=== PATIENT | male | born 1985 | race American Indian/Alaskan Native ===

== ENCOUNTER 2020-09-17 10:02 | Emergency (ER) | payer BC ==
--- NOTE | 2020-09-17 11:18 | Emergency Department Report ---
ED Back Pain/Injury HPI - General Chief Complaint: Back Pain/Injury Stated Complaint: BACK PAIN Time Seen by Provider: 09/17/20 11:13 Source: patient Limitations: No Limitations - History of Present Illness Initial Comments: Patient is a 34-year-old male presents emergency room complaints of lower back pain that began yesterday. 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 He states yesterday he went to put down a smaller package and felt a pull in his back. He denies any fall. He is ambulatory. He states his pain is worse with movement such as bending over or rolling over in the bed. He states that his back feels tight. He denies any fever, nausea, vomiting, diarrhea, abdominal pain, numbness, weakness, bowel or bladder incontinence, u rinary symptoms. Past medical history of hypertension. No allergies to medications. - Related Data Previous Rx's Medication Instructions Recorded Last Taken Type Menthol/Camphor [Keo [place] 1 applicatio TP BID #18 oint...g. 09/17/20 Unknown Rx Ointment] Naproxen [EC-Naprosyn] 500 mg PO BID PRN #14 tablet. 09/17/20 Unknown Rx methOCARBAMOL [Robaxin TAB] 500 mg PO BID PRN #14 tab 09/17/20 Unknown Rx Allergies Allergy/AdvReac Type Severity Reaction Status Date / Time No Known Allergies Allergy Verified 09/17/20 11:14 ED Review of Systems ROS: Stated complaint: BACK PAIN Other details as noted in HPI Comment: All other systems reviewed and negative ED Past Medical Hx - Social History Smoking Status: Current Every Day Smoker Substance Use Type: None - Medications Home Medications: Home Medications Medication Instructions Recorded Confirmed Last Taken Type Menthol/Camphor [[place]o [place] 1 applicatio TP BID #18 oint...g. 09/17/20 Unknown Rx Ointment] Naproxen [EC-Naprosyn] 500 mg PO BID PRN #14 tablet. 09/17/20 Unknown Rx methOCARBAMOL [Robaxin TAB] 500 mg PO BID PRN #14 tab 09/17/20 Unknown Rx ED Physical Exam - General Limitations: No Limitations General appearance: alert, in no apparent distress - Head Head exam: Present: atraumatic, normocephalic - Eye Eye exam: Present: normal appearance - ENT ENT exam: Present: mucous membranes moist - Neck Neck exam: Present: normal inspection, full ROM. Absent: tenderness - Respiratory Respiratory exam: Present: normal lung sounds bilaterally. Absent: respiratory distress, wheezes, rales, rhonchi, stridor, chest wall tenderness, accessory muscle use, decreased breath sounds, prolonged expiratory - Cardiovascular Cardiovascular Exam: Present: regular rate, normal rhythm, normal heart sounds. Absent: systolic murmur, diastolic murmur, rubs, gallop - Back Exam Back exam: Present: normal inspection, full ROM, paraspinal tenderness (bilateral lumbar paraspinal muscular ttp, no midline C-spine, T-spine or L- spine ttp, no step offs, no deformities). Absent: vertebral tenderness - Neurological Exam Neurological exam: Present: alert, oriented X3, CN II-XII intact, normal gait. Absent: motor sensory deficit - Psychiatric Psychiatric exam: Present: normal affect, normal mood - Skin Skin exam: Present: warm, dry, intact ED Course Vital Signs 09/17/20 11:22 Temperature 98.6 F Pulse Rate 67 Respiratory 18 Rate Blood Pressure 157/97 [Left] O2 Sat by Pulse 100 Oximetry ED Medical Decision Making - Radiology Data Radiology results: report reviewed - Medical Decision Making Patient is a 34-year-old male presents emergency room complaints of lower back pain that began yesterday. 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 He states yesterday he went to put down a smaller package and felt a pull in his back. He denies any fall. He is ambulatory. He states his pain is worse with movement such as bending over or rolling over in the bed. He states that his back feels tight. He denies any fever, nausea, vomiting, diarrhea, abdominal pain, numbness, weakness, bowel or bladder incontinence, urinary symptoms. Past medical history of hypertension. No allergies to medications. Vitals are stable. On exam: bilateral lumbar paraspinal muscular ttp, no midline C-spine, T-spine or L-spine ttp, no step offs, no deformities, no focal neuro deficits. Symptoms appear most consistent with muscle strain. He has no red flag warning signs of back pain, no significant trauma, no unexplained weight loss, no neuro deficits, age is not greater than 50, no fever, no IV drug use, no steroid use, no history of cancer, no saddle numbness. Patient given prescription for Robaxin, naproxen, Keo balm ointment. Advised patient Please use medication as prescribed. Do not drive or operate machinery while taking muscle relaxer Robaxin. May use ice pack, heating pad, rest, Epsom salt bath. Follow-up with a primary care doctor. Return to emergency room for any new or worsening symptoms. Critical care attestation.: If time is entered above; I have spent that time in minutes in the direct care of this critically ill patient, excluding procedure time. ED Disposition Clinical Impression: Low back strain Qualifiers: Encounter type: initial encounter Qualified Code(s): S39.012A - Strain of muscle, fascia and tendon of lower back, initial encounter Disposition: TO HOME OR SELFCARE Is pt being admited?: No Does the pt Need Aspirin: No Condition: Stable Instructions: Lumbar Strain Additional Instructions: Please use medication as prescribed. Do not drive or operate machinery while taking muscle relaxer Robaxin. May use ice pack, heating pad, rest, Epsom salt bath. Follow-up with a primary care doctor. Return to emergency room for any new or worsening symptoms. Prescriptions: Naproxen [EC-Naprosyn] 500 mg PO BID PRN #14 tablet.dr PRN Reason: pain methOCARBAMOL [Robaxin TAB] 500 mg PO BID PRN #14 tab PRN Reason: pain Menthol/Camphor [Keo [place] Ointment] 1 applicatio TP BID #18 oint...g. Referrals: YAW ENCISO MD [Staff Physician] - 2-3 Days [facility] [Provider Group] - 2-3 Days Forms: Work/School Release Form(ED) Time of Disposition: 11:16 Print Language: MAURITANIAN
[2020-09-17 11:23] VITALS: BP 157/97
== END 2020-09-17 12:29 | disposition home or self-care (01) ==
LOC: ED 10:02
DX: S39.012A Strain of muscle, fascia and tendon of lower back, initial encounter (principal); F17.200 Nicotine dependence, unspecified, uncomplicated; Z79.899 Other long term (current) drug therapy; X58.XXXA Exposure to other specified factors, initial encounter; Y93.89 Activity, other specified; Y92.89 Other specified places as the place of occurrence of the external cause; Y99.8 Other external cause status
CPT/HCPCS: 99282

== ENCOUNTER 2020-09-19 12:37 | Emergency (ER) | payer BC ==
[2020-09-19 13:50] VITALS: BP 156/93
[2020-09-19] MEDS ORDERED: KETOROLAC 60 MG/2 ML INJ IM ONE (13:52)
--- NOTE | 2020-09-19 14:16 | XRay Report ---
LUMBAR SPINE 3 VIEWS INDICATION: Low back pain after heavy lifting. COMPARISON: No relevant prior imaging study available. FINDINGS: VERTEBRAE: No acute fracture. There is mild dextroscoliosis. DISC SPACES: Generalized mild discogenic degenerative changes are noted. FACET JOINTS: No significant abnormality. SOFT TISSUES: No significant abnormality. ADDITIONAL FINDINGS: No additional significant findings. IMPRESSION: 1. No acute findings. 2. Mild lumbar spondylosis. Signer Name: Chris Cronin MD Signed: 09/19/2020 2:12 PM Workstation Name: [email or web address]
--- NOTE | 2020-09-19 14:19 | Emergency Department Report ---
ED General Adult HPI - General Chief complaint: Back Pain/Injury Stated complaint: BACK PAIN Time Seen by Provider: 09/19/20 13:52 Source: patient Mode of arrival: Ambulatory Limitations: No Limitations - History of Present Illness Initial comments: 35-year-old -[place] male patient presents with complaints of continued low back pain since his visit 09/09/2020. Back pain began after lifting an item at work and feeling a pop in his low back. Patient was treated with naproxen and Robaxin 500 mg twice daily and states his symptoms have not improved. He also states he has been using heat and ice. He rates his current pain as a 8/10 in severity and states it worsens with movement and after sitting still for an extended period of time. He denies any numbness/tingling/weakness in his limbs, saddle paresthesia, loss of bladder/bowel control, hematochezia, hematuria, or abdominal pain. -: Sudden Severity scale (0 -10): 7 - Related Data Previous Rx's Medication Instructions Recorded Last Taken Type Menthol/Camphor [[place] 1 applicatio TP BID #18 oint...g. 09/17/20 Unknown Rx Ointment] methOCARBAMOL [Robaxin TAB] 500 mg PO BID PRN #14 tab 09/17/20 Unknown Rx Diclofenac Sodium 75 mg PO BID PRN #14 tablet. 09/19/20 Unknown Rx methOCARBAMOL [Robaxin TAB] 1,500 mg PO Q8H PRN #15 tablet 09/19/20 Unknown Rx Allergies Allergy/AdvReac Type Severity Reaction Status Date / Time No Known Allergies Allergy Verified 09/17/20 11:14 ED Review of Systems ROS: Stated complaint: BACK PAIN Other details as noted in HPI Constitutional: denies: malaise Gastrointestinal: denies: abdominal pain, diarrhea, constipation, hematemesis, melena, hematochezia Genitourinary: denies: urgency, dysuria, frequency, hematuria Musculoskeletal: back pain Skin: denies: change in color Neurological: denies: numbness, paresthesias, abnormal gait ED Past Medical Hx - Past Medical History Previous Medical History?: Yes Hx Hypertension: Yes - Surgical History Past Surgical History?: No - Social History Smoking Status: Current Every Day Smoker Substance Use Type: None - Medications Home Medications: Home Medications Medication Instructions Recorded Confirmed Last Taken Type Menthol/Camphor [[place] 1 applicatio TP BID #18 oint...g. 09/17/20 Unknown Rx Ointment] methOCARBAMOL [Robaxin TAB] 500 mg PO BID PRN #14 tab 09/17/20 Unknown Rx Diclofenac Sodium 75 mg PO BID PRN #14 tablet. 09/19/20 Unknown Rx methOCARBAMOL [Robaxin TAB] 1,500 mg PO Q8H PRN #15 tablet 09/19/20 Unknown Rx ED Physical Exam - General Limitations: No Limitations General appearance: alert, in no apparent distress - Head Head exam: Present: atraumatic, normocephalic - Eye Eye exam: Present: normal appearance. Absent: scleral icterus - Neck Neck exam: Present: normal inspection - Respiratory Respiratory exam: Present: normal lung sounds bilaterally. Absent: respiratory distress - Cardiovascular Cardiovascular Exam: Present: regular rate, normal rhythm - GI/Abdominal GI/Abdominal exam: Present: soft. Absent: tenderness - Back Exam Back exam: Present: full ROM, paraspinal tenderness (Low lumbar), vertebral tenderness (Lumbar; no obvious deformity) - Expanded Back Exam Expanded Back exam: Absent: saddle anesthesia - Neurological Exam Neurological exam: Present: alert, oriented X3, normal gait. Absent: motor sensory deficit - Expanded Neurological Exam Expanded Sensory exam: Lower Extremity Light Touch: Normal Motor strength exam: RLE: 5, LLE: 5 - Psychiatric Psychiatric exam: Present: normal affect, normal mood - Skin Skin exam: Present: warm, dry, intact, normal color. Absent: rash ED Course Vital Signs 09/19/20 13:49 Temperature 98.7 F Pulse Rate 74 Respiratory 17 Rate Blood Pressure 156/93 [Right] O2 Sat by Pulse 100 Oximetry ED Medical Decision Making - Radiology Data Radiology results: report reviewed LUMBAR SPINE 3 VIEWS INDICATION: Low back pain after heavy lifting. COMPARISON: No relevant prior imaging study available. FINDINGS: VERTEBRAE: No acute fracture. There is mild dextroscoliosis. DISC SPACES: Generalized mild discogenic degenerative changes are noted. FACET JOINTS: No significant abnormality. SOFT TISSUES: No significant abnormality. ADDITIONAL FINDINGS: No additional significant findings. IMPRESSION: 1. No acute findings. 2. Mild lumbar spondylosis. - Medical Decision Making 35-year-old -[place] male patient presents with complaints of continued low back pain since his visit 09/09/2020. Back pain began after lifting an item at work and feeling a pop in his low back. Patient was treated with naproxen and Robaxin 500 mg twice daily and states his symptoms have not improved. He also states he has been using heat and ice. He rates his current pain as a 8/10 in severity and states it worsens with movement and after sitting still for an extended period of time. He denies any numbness/tingling/weakness in his limbs, saddle paresthesia, loss of bladder/bowel control, hematochezia, hematuria, or abdominal pain. X-ray is negative for any acute bony abnormalities, but show spondylolysis. He denies any red flag symptoms. We will continue to treat for back spasm/strain. Will change naproxen to diclofenac and increase Robaxin to 1500 mg 3 times daily as needed. Recommend follow-up with orthopedics. His vitals are normal, he is well-appearing, he is stable for discharge home. Strict return precautions were discussed in detail with patient who verbalized understanding. Critical care attestation.: If time is entered above; I have spent that time in minutes in the direct care of this critically ill patient, excluding procedure time. ED Disposition Clinical Impression: Arthritis of back Back injury Qualifiers: Encounter type: subsequent encounter Qualified Code(s): S39.92XD - Unspecified injury of lower back, subsequent encounter Disposition: -01 TO HOME OR SELFCARE Is pt being admited?: No Condition: Stable Instructions: Lumbosacral Strain, Spondylolysis Prescriptions: Diclofenac Sodium 75 mg PO BID PRN #14 tablet. PRN Reason: pain methOCARBAMOL [Robaxin TAB] 1,500 mg PO Q8H PRN #15 tablet PRN Reason: muscle spasm/tightness Referrals: [facility] [Provider Group] - 3-5 Days Forms: Work/School Release Form(ED)
== END 2020-09-19 15:30 | disposition home or self-care (01) ==
LOC: ED 12:37
DX: S39.92XA Unspecified injury of lower back, initial encounter (principal); M47.816 Spondylosis without myelopathy or radiculopathy, lumbar region; I10 Essential (primary) hypertension; F17.200 Nicotine dependence, unspecified, uncomplicated; Z79.899 Other long term (current) drug therapy; X50.9XXA Other and unspecified overexertion or strenuous movements or postures, initial encounter; Y93.89 Activity, other specified; Y92.89 Other specified places as the place of occurrence of the external cause; Y99.8 Other external cause status
CPT/HCPCS: 72100; 96372; 99283; J1885

== ENCOUNTER 2021-06-28 02:47 | Emergency (ER) | payer BC ==
[2021-06-28] MEDS ORDERED: HYDROmorphone 1 MG/1 ML INJ IV ONE ×2 (03:07→04:18)
[2021-06-28] MEDS ORDERED: KETOROLAC 30 MG/1 ML INJ IV ONE (03:07)
[2021-06-28] MEDS ORDERED: ONDANSETRON 4 MG/2 ML INJ IV ONE (03:07)
[2021-06-28] MEDS ORDERED: ACETAMINOPHEN 500 MG TAB PO ONE (03:07)
--- NOTE | 2021-06-28 03:12 | Emergency Department Report ---
ED Back Pain/Injury HPI - General Chief Complaint: Back Pain/Injury Stated Complaint: BACK PAIN, CHRONIC Time Seen by Provider: 06/28/21 02:53 Source: patient, EMS Limitations: No Limitations - History of Present Illness Initial Comments: Complaint: Back pain HPI: This is 35-year-old male with history of hypertension, dyslipidemia, lumbar degenerative disc disease who presents with severe 10 out of 10 left lower back pain. Patient has been out of work on receiving Workmen's Compensation since August of last year. He is employed by [employer]. He is also followed by [employer] or [employer]. 1 day ago he remembers tweaking his back. He had his leg propped on a dresser while attempting to apply lotion. He feels that may have exacerbated his back pain. He takes gabapentin for back pain. He arrived via EMS. He has severe 10 out of 10 sore back pain with spasms and tightening. He denies leg weakness. He denies bowel or bladder incontinence. He was diagnosed with 2 ruptured discs and abnormal facet joint. He has received 1 epidural injection in the past. He is undergoing physical therapy at this time. Current medications: Atorvastatin, water pill Complaint: back pain -: Gradual, days(s) (1 day ago back pain exacerbated) Similar Symptoms Previously: Yes Place: home Severity: severe Severity scale (0 -10): 10 Quality: other ("Sore") Consistency: constant Improves With: none Worsens With: movement Context: turning/twisting, bending Associated Symptoms: denies other symptoms - Related Data Previous Rx's Medication Instructions Recorded Last Taken Type Menthol/Camphor [[place] 1 applicatio TP BID #18 oint...g. 09/17/20 Unknown Rx Ointment] methOCARBAMOL [Robaxin TAB] 500 mg PO BID PRN #14 tab 09/17/20 Unknown Rx Diclofenac Sodium 75 mg PO BID PRN #14 tablet. 09/19/20 Unknown Rx methOCARBAMOL [Robaxin TAB] 1,500 mg PO Q8H PRN #15 tablet 09/19/20 Unknown Rx Cyclobenzaprine [Flexeril] 10 mg PO TID PRN #30 06/28/21 Unknown Rx Ibuprofen [Motrin 400 MG tab] 400 mg PO TID 5 Days #15 tablet 06/28/21 Unknown Rx oxyCODONE /ACETAMINOPHEN [Percocet 1 tab PO Q6HR PRN #15 tablet 06/28/21 Unknown Rx 5/325] Allergies Allergy/AdvReac Type Severity Reaction Status Date / Time No Known Allergies Allergy Verified 09/17/20 11:14 ED Review of Systems ROS: Stated complaint: BACK PAIN, CHRONIC Other details as noted in HPI Comment: All other systems reviewed and negative Constitutional: denies: chills, fever, malaise Respiratory: denies: cough, shortness of breath Cardiovascular: denies: chest pain Gastrointestinal: denies: abdominal pain, nausea, vomiting ED Past Medical Hx - Past Medical History Previous Medical History?: Yes Hx Hypertension: Yes Additional medical history: Degenerative disc disease, dyslipidemia - Surgical History Past Surgical History?: Yes Additional Surgical History: Cataract surgery - Social History Smoking Status: Current Every Day Smoker Substance Use Type: None - Medications Home Medications: Home Medications Medication Instructions Recorded Confirmed Last Taken Type Menthol/Camphor [[place] 1 applicatio TP BID #18 oint...g. 09/17/20 Unknown Rx Ointment] methOCARBAMOL [Robaxin TAB] 500 mg PO BID PRN #14 tab 09/17/20 Unknown Rx Diclofenac Sodium 75 mg PO BID PRN #14 tablet.dr 09/19/20 Unknown Rx methOCARBAMOL [Robaxin TAB] 1,500 mg PO Q8H PRN #15 tablet 09/19/20 Unknown Rx Cyclobenzaprine [Flexeril] 10 mg PO TID PRN #30 06/28/21 Unknown Rx Ibuprofen [Motrin 400 MG tab] 400 mg PO TID 5 Days #15 tablet 06/28/21 Unknown Rx oxyCODONE /ACETAMINOPHEN [Percocet 1 tab PO Q6HR PRN #15 tablet 06/28/21 Unknown Rx 5/325] ED Physical Exam - General Limitations: No Limitations General appearance: alert, in no apparent distress, other (Laying flat, appears in severe pain) - Head Head exam: Present: atraumatic, normocephalic - Eye Eye exam: Present: normal appearance - ENT ENT exam: Present: mucous membranes moist - Neck Neck exam: Present: normal inspection - Respiratory Respiratory exam: Present: normal lung sounds bilaterally. Absent: respiratory distress - Cardiovascular Cardiovascular Exam: Present: regular rate, normal rhythm, normal heart sounds. Absent: systolic murmur, diastolic murmur, rubs, gallop - GI/Abdominal GI/Abdominal exam: Present: soft, normal bowel sounds. Absent: distended, tenderness, guarding, rebound - Rectal Rectal exam: Present: deferred - Extremities Exam Extremities exam: Present: normal inspection - Back Exam Back exam: Present: normal inspection, full ROM. Absent: tenderness, CVA tenderness (R), CVA tenderness (L), muscle spasm, paraspinal tenderness, vertebral tenderness, rash noted - Neurological Exam Neurological exam: Present: alert, oriented X3 - Psychiatric Psychiatric exam: Present: normal affect, normal mood - Skin Skin exam: Present: warm, dry, intact, normal color. Absent: rash ED Course Vital Signs 06/28/21 06/28/21 06/28/21 02:55 03:15 03:16 Temperature 98.7 F Pulse Rate 85 83 Respiratory 18 20 20 Rate Blood Pressure 129/72 Blood Pressure 146/83 [Left] O2 Sat by Pulse 100 97 97 Oximetry 06/28/21 06/28/21 06/28/21 03:29 03:30 04:29 Temperature Pulse Rate 71 Respiratory 20 21 18 Rate Blood Pressure 151/88 Blood Pressure [Left] O2 Sat by Pulse 100 Oximetry 06/28/21 06/28/21 04:37 04:38 Temperature Pulse Rate Respiratory 20 20 Rate Blood Pressure Blood Pressure [Left] O2 Sat by Pulse Oximetry - Reevaluation(s) Reevaluation #1: 06/28/21 04:18 Pain is now 6-7 out of 10 after ketorolac acetaminophen hydromorphone. Additional medication ordered. Reevaluation #2: 06/28/21 05:22 Patient's pain is now 5 out of 10. Third round of medication includes Percocet and Flexeril. ED Medical Decision Making - Medical Decision Making Back pain, acute exacerbation of known degenerative disc disease of the lumbar spine. Neurologically intact. No evidence of cauda equina or cord compression. Medications provided emergency department includes acetaminophen, Flexeril, hydromorphone, ibuprofen, ketorolac, Zofran, Percocet. Prior to follow-up with his client technical specialist [facility] orthopedics. Prescribed ibuprofen Percocet Flexeril. Critical care attestation.: If time is entered above; I have spent that time in minutes in the direct care of this critically ill patient, excluding procedure time. ED Disposition Clinical Impression: Acute back pain, Lumbar degenerative disc disease Disposition: HOME / SELF CARE / HOMELESS Is pt being admited?: No Does the pt Need Aspirin: No Condition: Stable Instructions: Acute Back Pain, Adult, Degenerative Disk Disease Prescriptions: Cyclobenzaprine [Flexeril] 10 mg PO TID PRN #30 PRN Reason: Muscle Spasm Ibuprofen [Motrin 400 MG tab] 400 mg PO TID 5 Days #15 tablet oxyCODONE /ACETAMINOPHEN [Percocet 5/325] 1 tab PO Q6HR PRN #15 tablet PRN Reason: Pain Referrals: ROYA FONSECA II, MD [Staff Physician] - 3-5 Days [facility] [Primary Care Provider] - 3-5 Days
[2021-06-28] MEDS ORDERED: IBUPROFEN 800 MG TAB PO ONE (04:18)
[2021-06-28] MEDS ORDERED: oxyCODONE /ACETAMINOPHEN 5-325MG TAB PO ONE (05:21)
[2021-06-28] MEDS ORDERED: CYCLOBENZAPRINE 10 MG TAB PO ONE (05:21)
[2021-06-28 06:14] VITALS: BP 129/74
== END 2021-06-28 06:15 | disposition home or self-care (01) ==
LOC: ED 02:47
DX: M51.36 Other intervertebral disc degeneration, lumbar region (principal); M54.50 Low back pain, unspecified; I10 Essential (primary) hypertension; Z79.899 Other long term (current) drug therapy; Z98.890 Other specified postprocedural states; F17.200 Nicotine dependence, unspecified, uncomplicated
CPT/HCPCS: 96374; 96375; 96376; 99283; J1170; J1885; J2405